=== PATIENT | female | born 1970 | race Caucasian/White ===

== ENCOUNTER → 2024-08-11 15:17 | Outpatient (CLI) | payer OTHER, SELFPAY ==
--- NOTE | 2024-08-11 15:26 | DI.RAD.S_ITS ---
PROCEDURE: XR HIP W PEL IF DONE BILAT 2V INDICATIONS: HIP PAIN TECHNIQUE: AP pelvis with lateral view(s) of the both hip(s). COMPARISON: None. FINDINGS: Bones: No fractures or dislocations. Pelvic ring appears intact. No a vascular necrosis of the femoral heads. Mild bilateral hip DJD. No suspicious bony lesions. Soft tissues: The visualized bowel gas pattern is normal. No suspicious soft tissue calcifications. Clips in the right lower quadrant. IMPRESSION: Mild bilateral hip DJD. MRI could be considered for further evaluation. Dictated by: Connor Zelaya M.D. on 08/11/2024 at 20:17 Approved by: Connor Zelaya M.D. on 08/11/2024 at 20:17
== END ==
LOC: RAD 15:23
PROVIDERS: Referring Provider Naturopath; Visit Provider Naturopath
DX: M25.552 Pain in left hip (principal); M25.551 Pain in right hip; M16.0 Bilateral primary osteoarthritis of hip
CPT/HCPCS: 73521